=== PATIENT | female | born 1955 | race African-American/Black ===

== ENCOUNTER 2018-05-24 07:22 | Day surgery (SDC) | payer MEDICARE, OTHER ==
--- NOTE | 2018-05-21 14:45 | Pre-Procedure Note/Attestation ---
Pre-Procedure Note/Attestation Complete Prior to Procedure Planned Procedure: right Procedure Narrative: Cataract extraction With Intraocular Lens Implant Right Eye Indications for Procedure Pre-Operative Diagnosis: Cortical Cataract Right Eye Attestation I attest that I discussed the nature of the procedure; its benefits; risks and complications; and alternatives (and the risks and benefits of such alternatives ), prior to the procedure, with the patient (or the patient's legal medical device sales representative). I attest that, if there was a reasonable possibility of needing a blood transfusion, the patient (or the patient's legal medical device sales representative) was given the [facility] standardized written summary, pursuant to the Neymar Josefa Blood Safety Act ([place] Health and Safety Code # 1645, as amended). I attest that I re-evaluated the patient just prior to the surgery and that there has been no change in the patient's H&P, except as documented below: Clay Leiva MD May 21, 2018 14:45
--- NOTE | 2018-05-21 14:50 | Opthalmology H&P ---
Ophthalmology H&P H&P Chief Complaint: decreased vision in right eye HPI Vision Affects Ability to: read, manage personal affairs HPI Narrative Blurry Vision Exam Visual Acuity: OD20/100 OS20/40 Tension: OD 14 OS 14 Eye Exam: normal OU: external exam, palpebral fissure-width, marginal reflex distance, levator function, corneas, anterior chambers, lens - Cortical Cataract OU, fundus exam; findings: lens - Cortical Cataract OU, fundus exam Assessment/Plan Treatment Plan: cataract extraction w/ lens implant Goals of Treatment: improvement of vision, enhance quality of life Attestation Attestation The risks and benefits of the surgery as well as alternative procedures were explained to the patient in detail. Clay Leiva MD May 21, 2018 14:50
[~2018-05-24] VITALS: Ht 152.4 cm; Wt 47.6 kg
[2018-05-24] VITALS (9 sets, daily range): BP systolic 114–134; BP diastolic 62–76
[~2018-05-24 07:22] MED LIST: ATORVASTATIN CA10 MG ORAL; Akten 3.5% 1ml Btl RIGHT EYE ONE; Dexamethasone 4mg/ml vial ONE; JANUVIA25 MG ORAL; Maxitrol Opth Oint 3.5gm ONE; PLAVIX75 MG ORAL; Pilocarpine 1% Opth 15ml Soln ONE; Pred Forte 1% Opth Susp 1ml ONE; Proparacaine 0.5% Opth Soln 15ml RIGHT EYE ONE; Tetracaine 0.5% Opth 4ml Soln RIGHT EYE ONE; creon PO
[2018-05-24] MEDS: Tropicamide 1% Opth 15ml Soln RIGHT EYE SCH ×3 (10:18→10:30)
[2018-05-24] MEDS: Tobramycin Op Soln 0.3% 5ml RIGHT EYE SCH ×3 (10:18→10:30)
[2018-05-24] MEDS: Cyclopentolate 1% Opth Sol 2ml RIGHT EYE SCH ×3 (10:18→10:30)
[2018-05-24] MEDS: Diclofenac Sod 0.1% Op Soln RIGHT EYE SCH ×3 (10:18→10:30)
[2018-05-24] MEDS: Phenylephrine 10% Opth Soln 5ml RIGHT EYE SCH ×3 (10:18→10:30)
[2018-05-24] MEDS ORDERED: Midazolam 2mg/2ml Inj ONE ×2 (11:16→11:35)
[2018-05-24] MEDS ORDERED: fentaNYL 100 mcg/2 mL IV ONE ×2 (11:16→11:31)
[2018-05-24] MEDS ORDERED: NS Irrig 1000ml ONE (11:20)
[2018-05-24] MEDS ORDERED: LR 1000ml ONE (11:20)
[2018-05-24] MEDS ORDERED: Sterile Water Irrig 1000ml IRRIG ONE (11:20)
--- NOTE | 2018-05-24 11:22 | Anethesia Preoperative Eval ---
Diego Jackson MD 05/24/18 1122: Anesthesia Pre-op PM/ROS General Date of Evaluation: May 24, 2018 Time of Evaluation: 11:21 Anesthesiologist: Renetta ASA Score: ASA 3 Mallampati Score Class I : Soft palate, uvula, fauces, pillars visible Class II: Soft palate, uvula, fauces visible Class III: Soft palate, base of uvula visible Class IV: Only hard plate visible Mallampati Classification: Class II Surgeon: Kathleen Diagnosis: R eye cataract Surgical Procedure: R eye cataract extraction Anesthesia History: none Family History: no anesthesia problems Allergies: Coded Allergies: PENICILLINS (Verified Allergy, Intermediate, itching, swelling, 05/24/18) CODEINE (Verified Adverse Reaction, Intermediate, upset stomach, 05/24/18) Medications: see eMAR Patient NPO?: Yes Past Medical History Cardiovascular: Reports: HTN; Denies: CAD, OR, valve dz, arrhythmia, other Pulmonary: Denies: asthma, COPD, JEANNE, other Gastrointestinal/Genitourinary: Reports: GERD Anesthesia Pre-op Phys. Exam Physician Exam Last Vital Signs Date Time Temp Pulse Resp B/P (MAP) Pulse Ox O2 Delivery O2 Flow Rate FiO2 05/24/18 10:22 Room Air 05/24/18 10:20 97.3 65 18 118/73 98 Josie Patel CRNA 05/24/18 1145: Anesthesia Pre-op [facility] [[email or web address] General Date of Evaluation: May 24, 2018 Time of Evaluation: 11:30 Anesthesiologist: nahid ASA Score: ASA 1 Mallampati Score 2 Mallampati Classification: Class II Surgeon: kathleen Diagnosis: cataract Surgical Procedure: cataract extraction Anesthesia History: none Family History: no anesthesia problems Allergies: Coded Allergies: PENICILLINS (Verified Allergy, Intermediate, itching, swelling, 05/24/18) CODEINE (Verified Adverse Reaction, Intermediate, upset stomach, 05/24/18) Medications: see eMAR Patient NPO?: Yes NPO Date: May 24, 2018 NPO Time: 00:01 Past Medical History Cardiovascular: Reports: HTN Pulmonary: Denies: asthma, COPD, JEANNE, other Gastrointestinal/Genitourinary: Reports: GERD Neurologic/Psychiatric: Denies: dementia, CVA, depression/anxiety, TIA, other Endocrine: Denies: DM, hypothyroidism, steroids, other HEENT: Reports: cataract (R); Denies: cataract (L), glaucoma, [place] (L), [place] (R), other Anesthesia Pre-op Phys. Exam Physician Exam Constitutional: NAD Neurologic: CN 2-12 intact Cardiovascular: RRR Respiratory: CTA Gastrointestinal: S/NT/ND Airway Exam Mallampati Score: Class II MO: full ROM: full Dentures: upper, lower Anesthesia Pre-op A/P Studies Pre-op Studies: EKG - sr Risk Assessment & Plan Assessment: denjaelyn cp/sob Plan: mac Pre-Antibiotics Drug: Diego Felton MD May 24, 2018 11:22 Josie Patel CRNA May 24, 2018 11:45
[2018-05-24] MEDS ORDERED: Sodium Hyaluronate 14 mg/ml 0.85ml ONE (11:29)
[2018-05-24] MEDS ORDERED: BSS 500ml btl ONE (11:29)
[2018-05-24] MEDS ORDERED: BSS 15ml BTL ONE (11:29)
[2018-05-24] MEDS ORDERED: EPINEPHrine 1mg/1ml Amp ONE (11:29)
[2018-05-24] MEDS ORDERED: Povidone-Iodine 5% opth solution ONE (11:29)
--- NOTE | 2018-05-24 12:03 | Immediate Post-Op Evaluation ---
Immediate Post-Op Evalulation Immediate Post-Op Evalulation Procedure: cataract extraction right eye Date of Evaluation: May 24, 2018 Time of Evaluation: 12:03 Blood Pressure Systolic: 140 Blood Pressure Diastolic: 50 Pulse Rate: 69 Respiratory Rate: 14 O2 Sat by Pulse Oximetry: 100 Temperature (Fahrenheit): 97.6 Nausea: No Vomiting: No Patient Status: awake, reacts, patent Hydration Status: adequate Drug: none DarrenriJosie landa CRNA May 24, 2018 12:03
--- NOTE | 2018-05-24 13:01 | 48 Hour Post Anesthesia Eval ---
Post Anesthesia Evaluation Procedure: cataract extraction right eye Date of Evaluation: May 24, 2018 Time of Evaluation: 13:00 Blood Pressure Systolic: 130 0: 70 Pulse Rate: 65 Respiratory Rate: 14 O2 Sat by Pulse Oximetry: 98 Airway: patent Nausea: No Vomiting: No Hydration Status: adequate Cardiopulmonary Status: stable Mental Status/LOC: patient returned to baseline Post-Anesthesia Complications: none Follow-up care needed: N/A Josie Patel CRNA May 24, 2018 13:01
--- NOTE | 2018-05-26 10:35 | Brief Operative Note ---
Immediate Post Operative Note Operative Note Chief Complaint: blurry vision Pre-op Diagnosis: Cortical Cataract Right Eye Procedure: phaco with IOL, OD Post-op Diagnosis: Pseudophakia Post-op Diagnosis: same as pre-op Surgeon: Abbie Anesthesiologist: Amanda Anesthesia: MAC Specimen: none Complications: none Condition: stable Fluids: LR Estimated Blood Loss: none Drains: none Implant(s) used?: Yes Clay Leiva MD May 26, 2018 10:35
--- NOTE | 2018-05-26 10:36 | Operative Note - PDOC ---
Operative Note Operative Note Date of Operation/Procedure: May 24, 2018 Chief Complaint: blurry vision Pre-op Diagnosis: Cortical Cataract Right Eye Procedure: phaco with IOL, OD Post-op Diagnosis: Pseudophakia Post-op Diagnosis: same as pre-op Surgeon: Abbie Anesthesiologist: Amanda Anesthesia: MAC Specimen: none Complications: none Condition: stable Fluids: LR Estimated Blood Loss: none Drains: none Implant(s) used?: Yes Indications for Procedure cataract Description of Procedure This patient has been complaining visually significant cataract in the affected eye with the best corrected visual acuity under moderate glare conditions worse. The patient complains of difficulties with glare in performing activities of daily living and wants to manage personal affairs with comfort and accuracy and see well enough to move with safety at home and outdoors. The risks, benefits and alternatives of the procedure were discussed with the patient in the office prior to scheduling surgery. All questions from the patient were answered after the surgical procedure was explained in detail. The risks of the procedure as explained to the patient include, but are not limited to, pain, infection, bleeding, loss of vision, retinal detachment, need for further surgery, loss of lens nucleus, double vision, etc. Alternative procedures were discussed which include, to do nothing or seek a second opinion. Informed consent for this procedure was obtained from the patient. The patient was referred to a primary care physician for a cardiopulmonary clearance prior to surgery, after proper evaluation was done patient was properly scheduled for outpatient surgery. The patient was brought to the operating room where the anesthesiologist established I.V. lines and cardiac monitoring leads. Mild intravenous sedation was administered. The patient was then prepared with a 5% solution of povidone -iodine to the conjunctival fornix and lashes, and a 5% solution of povidone- iodine to the lids and periorbital skin. The patient was then draped in the usual sterile fashion. A lid speculum was then placed in the operative eye. A keratome blade was then used to create a biplanar incision into the anterior chamber. Viscoelastics was then instilled into the anterior chamber. A 3-mm single pass clear corneal incision was made just anterior to the vascular arcade of the temporal limbus using a keratome. Anterior capsulorrhexis was created. The nucleus was hydrodissected and hydrodelineated, and was freely movable in the capsular bag. The nucleus was then phacoemulsified using a quadrantic [id number] technique. Following the deep groove formation, the lens was split bimanually and the resultant quadrants and cortical material was removed under vacuum burst -mode phacoemulsification. Peripheral cortex was removed with the irrigation and aspiration handpiece. The capsular bag was expanded with viscoelastic. The intraocular lens was then inspected for right power and size and thought to be satisfactory. The implant was inspected under the microscope and found to be free of defects. The implant was inserted into the cartridge system under viscoelastic and placed in the capsular bag. The trailing haptic was positioned with the cartridge system. Viscoelastics was removed from the anterior chamber using the irrigation and aspiration unit. The corneal wound was then tested for leaks and none were found. The lid speculum were then removed. Sponge and needle counts were correct. An eye patch and shield were placed over the operative eye. The patient was taken to the recovery room in stable condition. There were no complications. The patient tolerated the procedure well. The patient was then transferred to the ambulatory surgery unit in stable and satisfactory condition , was given detailed written instructions and asked to follow up in the office the next day. Clay Leiva MD May 26, 2018 10:36
== END 2018-05-24 13:40 | disposition home or self-care (01) ==
LOC: SUR 07:22
DX: H25.011 Cortical age-related cataract, right eye (principal); E11.9 Type 2 diabetes mellitus without complications; E78.00 Pure hypercholesterolemia, unspecified; I73.9 Peripheral vascular disease, unspecified; I10 Essential (primary) hypertension; K21.9 Gastro-esophageal reflux disease without esophagitis; E78.5 Hyperlipidemia, unspecified; H91.93 Unspecified hearing loss, bilateral; Z88.5 Allergy status to narcotic agent; Z88.0 Allergy status to penicillin
CPT/HCPCS: 66984; 82962; J0171; J1100; J2250; J3010; J3370; V2632; 94003; 94150